=== PATIENT | male | born 1950 | race Caucasian/White ===

== ENCOUNTER → 2017-03-17 | Outpatient (CLI) | payer BC ==
[~2017-03-17] MED LIST: LIDOCAINE 1% PF 2 ML VIAL. ONE
--- NOTE | 2017-03-18 14:10 | SLEEP ---
DATE OF STUDY: 03/17/2017 SLEEP STUDY ATTENDING PHYSICIAN: Dr. Rodgers. DATE OF STUDY: 03/17/2017. The patient is a 66 years old, who weighs 170 pounds with a BMI of 26. The patient's Lovely score was 3. A sleep study was performed at [facility]. This was a split night study. During the night study, the patient spent 421 minutes in bed and slept for 347 minutes with a sleep efficiency of 82%. Sleep latency was 16 minutes with a REM latency of 59 minutes. Overall, sleep architecture showed increased stage I sleep, normal stage II sleep, normal slow wave and normal REM sleep. During the initial diagnostic portion of the study, the patient slept for 259 minutes. During this time, there were 72 obstructive apneas, 1 hypopneas, no mixed and no central apneas. The patient's apnea hypopnea index was 17 per hour, supine index 73 per hour. REM sleep was not seen during the diagnostic portion of the study. Review of nocturnal oximetry study revealed a mean oxygen saturation of 92% with the lowest of 83%. 13% of time oxygen saturation remained between 80% and 89%. PLMS were seen at index of 120 per hour and 1 per hour caused EEG arousals. EKG monitoring revealed average heart rate of 58 beats per minute. Normal sinus rhythm. No sustained arrhythmias were observed. The patient met the split night criteria for CPAP initiation. It was started at 5 cm of water and titrated up to 7 cm water due to signs of upper respiratory effort related arousals. At the final pressure of 7 cm of water, the patient slept for 64 minutes. Supine as well as REM sleep seen. AHI was reduced to 0 per hour and oxygen saturation remained above 90%. The patient used a small size nasal pillows. IMPRESSION: 1. Moderate sleep apnea-hypopnea syndrome with worsening during supine sleep. Absence of REM sleep during the diagnostic portion can underestimate the severity of sleep apnea. 2. Nocturnal hypoxia secondary to obstructive sleep apnea, but resolved with CPAP. 3. Severe PLMS. RECOMMENDATIONS: 1. CPAP at 7 cm water completely eliminated patient's sleep apnea and it should be used on a nightly basis. 2. Follow up in 4-6 weeks to assess compliance with CPAP and to document clinical improvement. 3. Avoid [employer] depressants. 4. Caution regarding driving until symptoms of sleep apnea resolve with the use of CPAP. 5. The patient has severe PLMS. The patient should be further evaluated for symptoms of restless legs during the day. NAOMI DE LEON MD DR: HAILEY/jordan JOB#: [id number] / [id number] Tariq Carson
== END | disposition home or self-care (01) ==
LOC: RT 18:34
PROVIDERS: ATTEND Family Medicine
DX: G47.33 Obstructive sleep apnea (adult) (pediatric) (principal); R06.83 Snoring; R09.02 Hypoxemia
CPT/HCPCS: 95810